=== PATIENT | female | born 1965 | race Caucasian/White ===

== ENCOUNTER → 2023-10-27 07:40 | Outpatient (REF) | payer OTHER, SELFPAY | LOC: EMG 07:40 | PROVIDERS: ATTENDING PHYSICIAN Family Medicine | DX: R20.2 Paresthesia of skin (principal); Z85.43 Personal history of malignant neoplasm of ovary; R19.00 Intra-abdominal and pelvic swelling, mass and lump, unspecified site; R20.0 Anesthesia of skin | CPT/HCPCS: 74177; 95886; 95911; Q9967 ==

== ENCOUNTER → 2023-11-11 08:05 | Outpatient (REF) | payer OTHER, SELFPAY | LOC: MRI 3T 08:05 | PROVIDERS: ATTENDING PHYSICIAN Specialist; FAMILY PHYSICIAN Family Medicine | DX: M54.16 Radiculopathy, lumbar region (principal) | CPT/HCPCS: 72148 ==

== ENCOUNTER → 2023-12-05 15:36 | Outpatient (REF) | payer OTHER, SELFPAY | LOC: RCS 15:36 | PROVIDERS: ATTENDING PHYSICIAN Physical Medicine & Rehabilitation; FAMILY PHYSICIAN Family Medicine | DX: Z01.818 Encounter for other preprocedural examination (principal) | CPT/HCPCS: 93005 ==

== ENCOUNTER → 2024-02-14 07:31 | Outpatient (REF) | payer OTHER, SELFPAY | LOC: EMG 07:31 | PROVIDERS: ATTENDING PHYSICIAN Psychiatry & Neurology Neurology | DX: M54.17 Radiculopathy, lumbosacral region (principal) | CPT/HCPCS: 95886; 95910 ==

== ENCOUNTER → 2024-10-03 18:52 | Outpatient (REF) | payer OTHER, SELFPAY | LOC: MRI 18:52 | PROVIDERS: ATTENDING PHYSICIAN Specialist; FAMILY PHYSICIAN Psychiatry & Neurology Neurology | DX: M54.50 Low back pain, unspecified (principal) | CPT/HCPCS: 72148 ==

== ENCOUNTER 2025-01-13 07:46 | Outpatient (RCR) | payer OTHER, SELFPAY | END 2025-01-13 23:59 | disposition home or self-care (01) | LOC: RPT 07:46 | PROVIDERS: ATTENDING PHYSICIAN Neurological Surgery; FAMILY PHYSICIAN Family Medicine | DX: Z47.89 Encounter for other orthopedic aftercare (principal); M54.50 Low back pain, unspecified; Z73.6 Limitation of activities due to disability; R26.89 Other abnormalities of gait and mobility; M16.11 Unilateral primary osteoarthritis, right hip; M62.81 Muscle weakness (generalized); M79.7 Fibromyalgia | CPT/HCPCS: 97010; 97110; 97112; 97116; 97140; 97162 ==

== ENCOUNTER 2025-01-24 11:17 | Outpatient (RCR) | payer OTHER, SELFPAY | END 2025-01-24 23:59 | disposition home or self-care (01) | LOC: RPT 11:17 | PROVIDERS: ATTENDING PHYSICIAN Neurological Surgery; FAMILY PHYSICIAN Family Medicine | DX: Z47.89 Encounter for other orthopedic aftercare (principal); M54.50 Low back pain, unspecified; Z73.6 Limitation of activities due to disability; R26.89 Other abnormalities of gait and mobility; M16.11 Unilateral primary osteoarthritis, right hip; M62.81 Muscle weakness (generalized); M79.7 Fibromyalgia | CPT/HCPCS: 97010; 97110; 97112 ==

== ENCOUNTER → 2025-02-20 07:56 | Outpatient (REF) | payer OTHER, SELFPAY | LOC: WOUND 07:56 | PROVIDERS: ATTENDING PHYSICIAN Surgery; FAMILY PHYSICIAN Family Medicine | DX: L24.A0 Irritant contact dermatitis due to friction or contact with body fluids, unspecified (principal); L89.310 Pressure ulcer of right buttock, unstageable; L89.320 Pressure ulcer of left buttock, unstageable; E11.69 Type 2 diabetes mellitus with other specified complication; F41.1 Generalized anxiety disorder | CPT/HCPCS: 99203 ==